=== PATIENT | male | born 2000 | race Caucasian/White ===

== ENCOUNTER 2019-10-18 19:00 | Observation (INO) | payer BC ==
[~2019-10-18 19:00] MED LIST: Iopamidol-370 76% 500 ML 1 ML ONE
[2019-10-18 20:02] LABS: #Eosinphils 0.2 thou/uL (0.0-0.7); #Lymphocytes 2.6 thou/uL (1.20-3.40); #Monocytes 0.4 thou/uL (0.11-0.59); #Neutrophils 2.4 thou/uL (1.40-6.50); %Basophils 0.8 % (0.0-1.0); %Eosinophils 3.4 % (0.0-10.0); %Lymphocytes 46.9 % (28.0-48.0); %Monocytes 6.8 % (0.0-4.0); %Neutrophils 42.1 % (31.0-61.0); Hemoglobin 13.8 g/dL (14.0-18.0); Mean Corpuscular HGB CONC 34.3 g/dL (32.0-36.0); Mean Corpuscular Hemoglobin 29.3 pg (25.0-35.0); Mean Corpuscular Volume 85.7 fL (78.0-98.0); Platelet Count 230 thou/uL (130-400); RBC Distribution Width 11.8 % (11.5-14.5); White Blood Cell (WBC) Count 5.6 thou/uL (4.8-10.8)
[2019-10-18] MEDS ORDERED: Ketorolac Tromethamine 30 MG/ML VIAL ONE (20:15)
[2019-10-18] MEDS ORDERED: Ondansetron PF 4 MG/2 ML Vial ONE (20:15)
[2019-10-18 20:19] LABS: ALT (SGPT) 15 U/L (8-55); AST (SGOT) 15 U/L (10-45); Albumin 4.6 g/dL (3.5-5.0); Alkaline Phosphatase 71 U/L (50-130); Anion Gap 8 mmol/L (10-20); BUN (Urea Nitrogen) 8 mg/dL (8.4-21.0); Bilirubin, Total 0.4 mg/dL (0.2-1.2); Calc. Creatinine Clearance 0 mL/min (70-130); Calcium 9.3 mg/dL (7.8-10.44); Carbon Dioxide 29 mmol/L (22-29); Chloride 109 mmol/L (98-107); Estimated GFR-MDRD Greater than 90; Globulin 2.7 g/dL (2.4-3.5); Glucose 89 mg/dL (70-105); Lipase 12 U/L (8-78); Potassium 3.8 mmol/L (3.5-5.1); Protein, Total 7.3 g/dL (6.0-8.3); Sodium 142 mmol/L (136-145)
--- NOTE | 2019-10-18 21:01 | CT ---
CT ABDOMEN AND PELVIS 10/18/19 COMPARISON: None. HISTORY: Abdominal pain, right lower quadrant pain, assess for appendicitis. TECHNIQUE: Axial CT imaging at 5 mm intervals from lung bases through pubic symphysis with intravenous contrast. Coronal and sagittal reformatted imaging obtained. FINDINGS: The imaged lung bases are unremarkable. No free intraperitoneal air. The liver, gallbladder, spleen, pancreas, adrenal glands, and kidneys appear grossly unremarkable. Limited assessment of the bowel demonstrates no evidence for obstruction. The vascular structures of the abdomen/pelvis appear patent. No abdominal or pelvic lymphadenopathy. There is mild wall thickening of the appendix, especially in the region of the mid and distal appendi x, best seen on axial image 48 and coronal image 65. There is probable mild periappendiceal fat stran ding between the cecum and the psoas muscle on the right involving the periappendiceal region on axia l image 54. The appendix measures approximately 8 mm in transverse dimension distally with a 3-4 mm a ppendiceal wall thickness. Findings are suspicious for early acute appendicitis in the proper clinica l setting. The osseous structures demonstrate no worrisome lytic or blastic bone lesions. IMPRESSION: Mild periappendiceal fat stranding with mild dilation of the appendix and mild appendiceal wall thick ening. Findings are suspicious for acute appendicitis in the proper clinical setting. Results were called to Dr. Jose Ward at 8:45 p.m., 10/18/19. Code CR POS: LUIS
[2019-10-18 21:10] LABS: Bilirubin Negative (Negative); Blood, Urine Negative (Negative); Clarity Clear (Clear); Glucose, Urine (Dipstick) Normal (Negative); Leukocyte Negative Leu/uL (Negative); Nitrite Negative (Negative); Protein, Urine (Dipstick) 10 mg/dL (Neg-Trace)
[2019-10-18] MEDS ORDERED: Morphine 4 MG/ML VIAL ONE (21:19)
[2019-10-18] MEDS ORDERED: MEROPENEM 1 GM/50 ML 1 GM in Premix Bag 1 BAG IVPB SCH (21:30)
[2019-10-18] MEDS ORDERED: Morphine 4 MG/ML VIAL SLOW IVP PRN (23:29)
[2019-10-18] MEDS ORDERED: Ondansetron PF 4 MG/2 ML Vial IVP PRN (23:30)
[2019-10-18] MEDS ORDERED: Ondansetron ODT 4 MG TAB SL PRN (23:30)
[2019-10-18] MEDS: Sodium Chloride 0.9% 1,000 ML IV SCH (23:41)
[2019-10-19 00:03] VITALS: BMI 24.0
[2019-10-19] MEDS: Sodium Chloride 0.9% 1,000 ML IV SCH (08:30)
[2019-10-19] MEDS ORDERED: MEROPENEM 1 GM/50 ML 1 GM in Premix Bag 1 BAG IVPB SCH (09:00)
[2019-10-19] MEDS ORDERED: FLU VACC QS2019-20(6MOS UP)/PF 60 MCG/0.5 ML SYRINGE IM ONE (09:00)
[2019-10-19] MEDS ORDERED: Ondansetron PF 4 MG/2 ML Vial ONE (10:04)
[2019-10-19] MEDS ORDERED: diphenhydrAMINE 50 MG/ML VIAL ONE (10:04)
[2019-10-19] MEDS ORDERED: Rocuronium Bromide 10 MG/ML (10ML VIAL) ONE (10:04)
[2019-10-19] MEDS ORDERED: Dexamethasone 20 MG/5 ML VIAL ONE (10:04)
[2019-10-19] MEDS ORDERED: Glycopyrrolate 0.2 MG/ML 5 ML SYRINGE ONE (10:04)
[2019-10-19] MEDS ORDERED: PROPOFOL 200 MG/20 ML VIAL ONE (10:04)
[2019-10-19] MEDS ORDERED: Ketorolac Tromethamine 30 MG/ML VIAL ONE (10:04)
[2019-10-19] MEDS ORDERED: Fentanyl 100 MCG/2 ML VIAL ONE (11:29)
[2019-10-19] MEDS ORDERED: Midazolam HCl 2 mg/2 ml Vial ONE (11:30)
--- NOTE | 2019-10-19 12:43 | HP ---
CHIEF COMPLAINT: Right lower quadrant pain. HISTORY OF PRESENT ILLNESS: This is a 18-year-old male who had a history of periumbilical pain associated with nausea, was seen in the emergency room mainly for the nausea, but he was found to be excruciatingly tender in the right lower quadrant. CT scan shows early acute appendicitis without evidence of perforation. He has never had this pain before. He denies history of chronic abdominal pain or inflammatory bowel disease. Pain described as sharp and in the right lower quadrant 8/10, much worse when being pushed on. PAST MEDICAL HISTORY: Denies. PAST SURGICAL HISTORY: Denies. MEDICATIONS: Medicines taken daily, none. ALLERGIES: NO KNOWN DRUG ALLERGIES. SOCIAL HISTORY: He smokes, occasional alcohol. No other drugs. REVIEW OF SYSTEMS: Ten-system review of systems is otherwise negative unless described above. PHYSICAL EXAMINATION: VITAL SIGNS: Blood pressure 108/63, pulse 66, respirations 14. HEENT: Sclerae anicteric. Oropharynx, clear. NECK: No lymphadenopathy. CHEST: Clear. HEART: Regular rate and rhythm. ABDOMEN: Soft, tender in the right lower quadrant with localized guarding without rebound. No abdominal hernias. EXTREMITIES: No ischemia or edema to extremities. LABORATORY DATA: Hemoglobin is 13. Sodium 142, potassium 3.8, creatinine 0.95. CT scan shows early acute appendicitis. ASSESSMENT: Acute appendicitis. PLAN: Laparoscopic appendectomy. Risks, benefits, and alternatives were discussed. He gives consent and we will do this today. Job ID: [id number]
[2019-10-19] MEDS ORDERED: Lidocaine 2% w/Epinephrine 1:200K 20 ML VIAL ONE (13:14)
[2019-10-19] MEDS ORDERED: Ondansetron PF 4 MG/2 ML Vial IVP PRN (13:55)
[2019-10-19] MEDS ORDERED: Promethazine HCl 25 MG/ML VIAL IM PRN (13:55)
[2019-10-19] MEDS ORDERED: Morphine 2 MG/ML SYRINGE SLOW IVP PRN (13:55)
[2019-10-19] MEDS ORDERED: Dextrose 5% in Water 1,000 ML IV PRN (13:55)
[2019-10-19] MEDS ORDERED: hydrALAZINE 20 MG/ML VIAL SLOW IVP PRN (13:55)
[2019-10-19] MEDS ORDERED: Dextrose 50% Abboject 50 ML SYRINGE SLOW IVP PRN (13:55)
[2019-10-19] MEDS ORDERED: HYDROcodone/Acetaminophen 10/325 mg Tablet PO PRN (13:55)
[2019-10-19] MEDS ORDERED: Morphine 4 MG/ML VIAL SLOW IVP PRN (13:55)
[2019-10-19] MEDS ORDERED: D5 1/2 NS w/20 mEq KCL 1,000 ML IV SCH (13:55)
[2019-10-19] MEDS ORDERED: Ondansetron HCl/PF 4 MG/2 ML Vial IVP PRN (14:35)
[2019-10-19] MEDS ORDERED: Promethazine HCl 25 MG/ML VIAL SLOW IVP PRN (14:35)
[2019-10-19] MEDS ORDERED: Meperidine HCl/PF 25 MG/ML VIAL SLOW IVP PRN (14:35)
[2019-10-19 15:05] VITALS: BP 116/67; TEMP 97.7
--- NOTE | 2019-10-19 16:08 | OP ---
DATE OF PROCEDURE: 10/19/2019 PREOPERATIVE DIAGNOSIS: Acute appendicitis. POSTOPERATIVE DIAGNOSIS: Acute appendicitis. PROCEDURE PERFORMED: Laparoscopic appendectomy. ANESTHESIA: General. SENIOR SALES MANAGER: None. COMPLICATIONS: None. SPECIMENS: Appendix. FINDINGS: Appendicitis. DESCRIPTION OF PROCEDURE: The patient was taken to the operating room and laid supine on the operating room table. After general anesthetic was obtained, a Selby was placed. The abdomen was shaved, prepped, and draped in a sterile fashion. A curved incision was made below the umbilicus, cautery was used to dissect down to and score the fascia. Abdominal cavity entered bluntly using a Maura clamp. Holding stitch of PDS placed on each side of the fascia. Eitan trocar was placed. High-flow pneumoperitoneum was obtained. A suprapubic 5-mm port and left lower quadrant 5-mm port were placed under direct visualization. Cecum was rolled over to reveal acute appendicitis. A window was made at the base of the appendix and mesoappendix. Laparoscopic stapler was fired across the base of the appendix. A vascular reload was fired across the mesoappendix. Appendix was placed in an EndoCatch bag and brought out through the Lucero. A bleeder on the mesenteric staple line was cauterized. No injury to any intraabdominal structures. Right lower quadrant and pelvis were irrigated using sterile solution. All ports were infiltrated using local anesthetic and removed under direct visualization without bleeding. Pneumoperitoneum was let down. PDS was used to close the fascial defect below the umbilicus. All incisions were irrigated and closed using 4-0 Monocryl and Dermabond. The patient was sent to Recovery in stable condition. All instrument counts, needle counts, and lap counts were correct. Job ID: [id number]
[2019-10-19] MEDS ORDERED: Famotidine/PF 20 mg/2ml Vial SLOW IVP SCH (21:00)
[2019-10-19] MEDS ORDERED: Famotidine 20 MG TAB PO SCH (21:00)
== END 2019-10-19 18:14 | disposition home or self-care (01) ==
LOC: ERS 19:00 → SJJU 23:29 → INTOOBSV 23:29
PROVIDERS: ADMIT Family Medicine; ATTEND Family Medicine
PROC: 0DTJ4ZZ Resection of Appendix, Percutaneous Endoscopic Approach (ICD-10-PCS; principal; 2019-10-18)
DX: K35.80 Unspecified acute appendicitis (principal); F17.210 Nicotine dependence, cigarettes, uncomplicated
CPT/HCPCS: 36415; 74177; 80053; 81003; 83690; 85025; 88304; 96361; 96365; 96375; J0131; J1100; J1200; J1885; J2185; J2250; J2270; J2405; J2704; J3010; Q9967

== ENCOUNTER 2020-11-17 14:56 | Emergency (ER) | payer BC ==
--- NOTE | 2020-11-17 15:57 | RAD ---
EXAM: XR Hand Rt 3 View STANDARD PROVIDED CLINICAL HISTORY: Pain status post injury FINDINGS: There is no evidence for fracture or other acute osseous abnormality. Alignment appears anatomic. Giselle nt spaces appear preserved. IMPRESSION: No evidence for an acute osseous abnormality. If there is persistent clinical concern, conservative m anagement and follow-up imaging advised.
== END 2020-11-17 16:20 | disposition home or self-care (01) ==
LOC: ERS 14:56
DX: S60.221A Contusion of right hand, initial encounter (principal); W22.8XXA Striking against or struck by other objects, initial encounter; F17.210 Nicotine dependence, cigarettes, uncomplicated